=== PATIENT | female | born 1960 | race Caucasian/White ===

== ENCOUNTER → 2020-11-10 | Outpatient (CLI) | payer BC, OTHER ==
[~2020-11-10] MED LIST: ESTRADIOL1 MG PO; FLEXERIL 10 MG10 MG PO; HAWTHORN BERRI565 MG PO; IBUPROFEN600 MG PO; MAGNESIUM CITR100 MG PO; MINOCIN50 MG PO; MIRALAX17 GM PO; MULTIVITAMINS1 EAC1 PO; NORCO 5-325 TA1 EACH PO; NORCO 7.5-3251 EACH PO; QUERCETIN PO; ST. JOHN'S WOR150 MG PO; TURMERIC500 MG PO; VALACYCLOVIR500 MG PO; VALERIAN ROOT PO; VITAMIN C 500500 MG PO; VITAMIN D32000 UNIT PO; VITAMIN E400 UNI3 PO; ZINC50 M1 PO; ZYRTEC10 MG PO
== END ==
LOC: CT 09:03
DX: R10.31 Right lower quadrant pain (principal)
CPT/HCPCS: 72193; Q9967